=== PATIENT | male | born 1985 | race African-American/Black ===

== ENCOUNTER 2023-10-16 22:32 | Emergency (ER) | payer OTHER, SELFPAY ==
[2023-10-16 22:33] VITALS: BP 117/85; PULSE 62; RESP 18; TEMP 36.9; O2SAT 99; BMI 27.7
[2023-10-16] MEDS: Diphth,Pertus(ACell),Tet Adult 0.5 ML SYRINGE IM (22:55)
[2023-10-17 00:02] VITALS: BP 97/62; PULSE 56; RESP 16; TEMP 36.6
--- NOTE | 2023-10-17 01:30 | ED.WOUNDLAC ---
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 Unknown last tetanus. Related Data Allergies Allergy/AdvReac Type Severity Reaction Status Date / Time No Known Allergies Allergy Verified 10/16/23 22:44 Review of Systems Review of Systems: Pertinent positives and negatives as stated in HPI PMFSH Past Medical History Source: nursing notes reviewed Social History Social History Advance Directives: No Advance Directives Information Provided: No Physical Exam Vital Signs: Vital Signs: Last Vital Signs Temp 97.8 F 10/17/23 00:02 Pulse 56 10/17/23 00:02 Resp 16 10/17/23 00:02 BP 97/62 10/17/23 00:02 Pulse Ox 99 10/16/23 22:33 O2 Del Method Room Air 10/16/23 22:33 BMI result Body Mass Index 27.7 VITAL SIGNS: Reviewed. GENERAL: Well developed, well nourished, in no acute distress. HEAD: Normocephalic/atraumatic EYES: PERRLA, EOMI LUNGS: Normal breath sounds. No adventitious sounds or accessory muscle use. SpO2<99> CARDIOVASCULAR: Regular rate and rhythm without noted murmurs ABDOMEN: Soft, non-tender, non-distended with bowel sounds. MUSCULOSKELETAL: No tenderness, deformities, or effusions noted on gross inspection. EXTREMITIES: No cyanosis, clubbing or edema. LUE: C-shaped laceration with intact deep structure, hemostatic, approximate 3.5 cm SKIN: Inspection of the skin reveals no rashes NEUROLOGIC: Alert and oriented x 4. Strength and sensation to light touch were grossly intact x 4. Medications Administered Discontinued Medications Generic Name Dose Route Start Last Admin Trade Name Freq PRN Reason Stop Dose Admin Diphtheria/Tetanus/Acell Pertussis 0.5 ml 10/16/23 22:47 10/16/23 22:55 Diphth,Pertus(Acell),Tet Adult 0.5 Ml Syringe IM 10/16/23 22:48 0.5 ml .ONCE ONE Administration Medical Decision Making Medical Decision Making [facility] Narrative: 38-year-old male received a Tdap, laceration repair to left forearm with 1 retention suture and 2 flanking running sutures. Patient tolerated procedure well and is otherwise discharged in instructed to return in 7 days for removal of the sutures. Differential Diagnosis Differential Diagnoses: The differential diagnosis associated with the presentation includes Please see the discussion above Admission/Observation Consideration of admission/observation: Escalation of care including admission/observation considered Please see the discussion above Procedures Laceration Laceration 1: Site: upper extremity Side (If applicable): left Size (cm): 3.5 Description: flap and irregular Depth: simple, single layer Local Anesthetic: lidocaine 1% Amount of anesthesia used (mL): 3 Pre-repair: wound explored, irrigated extensively and deep structures intact Skin layer closed with: nylon Size (cm): 4-0 Number of sutures: 3 Technique: running (2) and horizontal mattress (1) Discharge Plan Discharge Clinical Impression: Laceration Patient Disposition: Home, Self-Care Instructions: Laceration (DC), Care For Your Stitches (ED) Additional Instructions: 1. Recomiende Tylenol/ibuprofeno de venta elvis seg?n sea necesario para controlar el dolor. 2. Deber? realizar un seguimiento con gresham m?dico de atenci?n primaria o regresar a esta malou de emergencias para que le retiren las suturas en 7 d?as. 3. En 24 horas, limpie el ?angelique con agua y jab?n, seque cuidadosamente, aplique un joni?ento antibi?raysa de venta elvis y cubra con un vendaje. 4. Seguimiento con m?dico de atenci?n primaria. Regrese a urgencias si presenta fiebre o drenaje de purulencias. 1. Recommend [id number] Tylenol/ibuprofen as needed for pain control. 2. You will need to follow-up with your primary care doctor or return to this emergency room for removal of your sutures in 7 days. 3. In 24 hours please cleanse the area with soap and water, carefully dry, apply [id number] antibiotic ointment and cover with a dressing. 4. Follow-up with primary care doctor. Return to the ER for any fevers, purulence drainage. Print Language: Belarusian
[2023-10-17 01:40] VITALS: BP 95/68; PULSE 53; RESP 16; TEMP 36.5; O2SAT 97
--- NOTE | 2023-10-17 01:55 | PC.NURSE ---
provider pt education with foreign language interpreter regarding wound care and dressing changes. pt verbalizes understanding at this time
== END 2023-10-17 01:57 | disposition home or self-care (01) ==
PROVIDERS: Emergency Provider Student in an Organized Health Care Education/Training Program
DX: S51.812A Laceration without foreign body of left forearm, initial encounter (principal); W26.8XXA Contact with other sharp object(s), not elsewhere classified, initial encounter; Y93.E5 Activity, floor mopping and cleaning; Y92.039 Unspecified place in apartment as the place of occurrence of the external cause; Y99.9 Unspecified external cause status
CPT/HCPCS: 12002; 90471; 90715; 99284

== ENCOUNTER 2023-10-22 17:24 | Emergency (ER) | payer OTHER, SELFPAY ==
[2023-10-22 17:41] VITALS: BP 124/80; PULSE 83; RESP 16; TEMP 36.6; O2SAT 97; BMI 28.0
--- NOTE | 2023-10-22 17:43 | ED.GENADULT ---
HPI - General Adult General Chief complaint: Wound/Laceration Stated complaint: suture removal Time Seen by Provider: 10/22/23 17:43 Source: patient and mechanic helper Mode of arrival: ambulatory Limitations: no limitations History of Present Illness HPI narrative: 38 year old male presents to the ED today requesting suture removal. Reports having sutures placed to his left ventral forearm 7 days ago and was told to return to the emergency department for suture removal. Denies fever, chills, redness/swelling/discharge from the wound. Related Data Allergies Allergy/AdvReac Type Severity Reaction Status Date / Time No Known Allergies Allergy Verified 10/16/23 22:44 Review of Systems Review of Systems: Constitutional: No fever, chills, fatigue, night sweats, weight changes ENT/Mouth: No ear pain, hearing loss, nasal congestion, sinus pain, rhinorrhea, sore throat Eyes: No eye pain, swelling, redness, vision changes, discharge Cardio: No chest pain, palpitations, CAMPOS, orthopnea, peripheral edema Pulm: No SOB, cough, sputum, wheezing, dyspnea, hemoptysis GI: No nausea, vomiting, hematemesis, abdominal pain, diarrhea, constipation, hematochezia, melena : No irregular bleeding, dysuria, frequency, urgency, hesitancy, hematuria, flank pain, urinary flow changes, urinary incontinence or retention MSK: No back pain, neck pain, joint pain, myalgias Skin: No lesions, rashes, +sutures to left forearm Neuro: No weakness, numbness, paresthesias, LOC, dizziness, headache All other systems reviewed and are negative. [facility] Past Medical History Attestation statement: The following information was validated with the patient. Source: old records reviewed and nursing notes reviewed Social History Advance Directives: No Advance Directives Information Provided: No Physical Exam ED Vital Signs: Vital Signs - 24 hr 10/22/23 17:41 Temperature 97.9 F Pulse Rate 83 Respiratory Rate 16 Blood Pressure 124/80 Pulse Oximetry 97 Oxygen Delivery Method Room Air BMI result Body Mass Index 28.0 Vital signs stable Const General: cooperative, healthy appearing, comfortable, no acute distress, alert and awake Orientation/consciousness: patient oriented x3 Limitations: no limitations Eyes General: appearance normal, both eyes and all related structures Conjunctivae: conjunctivae normal Sclerae: sclerae normal Pupils: Equal, round and reactive pupils present Resp Effort & Inspection: normal respiratory effort Auscultation: clear to auscultation bilaterally Cardio Rate: regular rate Rhythm: regular rhythm Peripheral pulses: radial pulses present and ulnar radial pulses present Skin Other: + left ventral forearm with one retention suture and two flanking running sutures intact. There is no surrounding erythema or edema. No warmth or palpable fluctuance. General skin exam: no rashes or lesions noted Neuro Other: NV intact distally. General: patient oriented x3, gait normal and moves all extremities Cranial nerves: Yes Equal, round and reactive pupils present Extrem General: Yes normal to inspection and Yes capillary refill normal Course Course Course Narrative: Upon review of chart, patient's sutures were placed 5 days ago. He has returned to the emergency department 2 days early. This was discovered after suture removal was attempted. Half of the sutures were removed. Laceration was not fully healed. Sutures to the right side of the laceration are still in place. Steri-Strips were placed to the left side of the laceration. There is no active bleeding or signs of infection. I advised the patient that he needs to return to the emergency department in 7 days for complete suture removal. I provided him with the exact states that he is to return. Discussed strict return precautions in worrisome signs and symptoms. All questions answered at this time. Patient is agreeable disposition and stable for discharge. Medical Decision Making Medical Decision Making MDM Narrative: 38 year old male presents to the ED today requesting suture removal. Reports having sutures placed to his left ventral forearm 7 days ago and was told to return to the emergency department for suture removal. VSS. Patient is nontoxic appearing and in NAD. Sutures noted to left ventral forearm, intact, dry. Differential Diagnosis Differential Diagnoses: The differential diagnosis associated with the presentation includes As above. Admission/Observation Not indicated. Critical Care Time Critical Care Time Critical Care Time: No Discharge Plan Discharge Clinical Impression: Laceration Patient Disposition: Home, Self-Care Instructions: Stitches Removal (ED) Additional Instructions: It is too early to remove your stitches. Keep the steri-strips attached. They will come off themselves. Return to the ED in 7 days (on 10/29/23) to remove the rest of your stitches. If you develop signs of infection such as fever, redness to the area, dischage from the area please return to the ED. In the case of emergency call 911. Es demasiado pronto para quitarse los puntos. Mantenga las steri-strips colocadas. Se desprender?n solos. Regrese al servicio de urgencias en 7 d?as (el 01/09/23) para quitar el tamra de los puntos. Si desarrolla signos de infecci?n, nakul fiebre, enrojecimiento del ?angelique o secreci?n del ?angelique, regrese al servicio de urgencias. En princess de emergencia llame al 911. Interventions: ED Discharge Assessment Last Done: 10/22/23 18:59 Discharge Date/Time: 10/22/23 19:00 Print Language: Cameroonian
== END 2023-10-22 19:00 | disposition home or self-care (01) ==
PROVIDERS: Emergency Provider Emergency Medicine Emergency Medical Services; PCP Student in an Organized Health Care Education/Training Program
DX: Z48.02 Encounter for removal of sutures (principal); S51.812D Laceration without foreign body of left forearm, subsequent encounter; X58.XXXD Exposure to other specified factors, subsequent encounter
CPT/HCPCS: 99283

== ENCOUNTER 2023-10-29 17:05 | Emergency (ER) | payer OTHER, SELFPAY ==
--- NOTE | 2023-10-29 17:32 | ED.SKABFB ---
HPI - Skin/Abscess/Foreign Bdy General Stated complaint: suture removal Time Seen by Provider: 10/29/23 17:32 Source: patient Mode of arrival: ambulatory Limitations: language barrier (Telugu-speaking medical records auditor utilized) History of Present Illness HPI narrative: Patient is a 30-year-old male presents emergency department for suture removal. He presented initially to the emergency department 10/17/2023 for laceration to the left forearm, have 1 retention suture and 2 flanking running sutures placed. Advised to return in 7 days for removal. He returned on 10/22/2023 for removal, at that time was too early to remove it was advised to return in another 7 days. Denies fevers, chills, redness, swelling, pus-like discharge, numbness or tingling, decreased AROM to the wrist. Related Data Allergies Allergy/AdvReac Type Severity Reaction Status Date / Time No Known Allergies Allergy Verified 10/29/23 17:32 Review of Systems Review of Systems: Yes all other systems are reviewed and are negative PMFSH Past Medical History Attestation statement: The following information was validated with the patient. Source: old records reviewed Physical Exam Vital Signs: Appearance: Alert.?Oriented to person, place and time. No acute distress.?Normal affect.?? Neck: Normal inspection.? Neck supple.?? CVS: Heart sounds normal. Normal heart rate and rhythm.? Pulses normal.?? Respiratory: No respiratory distress.? Lung sounds clear to auscultation bilaterally?? Skin: Skin warm and dry.? Normal skin color.? Left forearm with sutures intact, no surrounding erythema or edema. No palpable warmth or fluctuance. Extremities: No extremity edema.? Neuro: Moves all extremities spontaneously. Sensation intact bilaterally. Ambulates with normal steady gait. Medical Decision Making Medical Decision Making [facility] Narrative: Patient is a 38-year-old male who presents emergency department for suture removal as per HPI. Overall is well-appearing, nontoxic, afebrile. Sutures intact, and dry, no signs of infection, removed today without complication. Stable for discharge. Differential Diagnosis Differential Diagnoses: The differential diagnosis associated with the presentation includes (Healed laceration, examination not consistent with cellulitis, no septic joint) Prescription Management I considered prescription management with: Pain Medication (Symptoms/ibuprofen) Discharge Plan Discharge Clinical Impression: Laceration of left forearm Patient Disposition: Home, Self-Care Referrals: Physician,Unknown J [Primary Care Provider] -
[2023-10-29 17:33] VITALS: BP 113/79; PULSE 96; RESP 18; TEMP 36.7; O2SAT 98; BMI 28.0
== END 2023-10-29 18:01 | disposition home or self-care (01) ==
LOC: HO.ED 17:52
PROVIDERS: Emergency Provider Internal Medicine
DX: Z48.02 Encounter for removal of sutures (principal); S51.812D Laceration without foreign body of left forearm, subsequent encounter; X58.XXXD Exposure to other specified factors, subsequent encounter
CPT/HCPCS: 99282